=== PATIENT | male | born 1940 | race Caucasian/White ===

== ENCOUNTER → 2024-03-20 09:26 | Outpatient (REF) | payer MEDICARE, OTHER, SELFPAY | LOC: RCS 09:26 | PROVIDERS: ATTENDING PHYSICIAN Internal Medicine | DX: R00.1 Bradycardia, unspecified (principal); I49.1 Atrial premature depolarization; I49.3 Ventricular premature depolarization | CPT/HCPCS: 93225; 93226 ==

== ENCOUNTER → 2024-04-16 15:30 | Outpatient (REF) | payer MEDICARE, OTHER, SELFPAY | LOC: MRI 3T 15:30 | PROVIDERS: ATTENDING PHYSICIAN Internal Medicine | DX: K86.89 Other specified diseases of pancreas (principal) | CPT/HCPCS: 74183; A9575 ==

== ENCOUNTER → 2025-07-07 10:40 | Outpatient (REF) | payer MEDICARE, OTHER, SELFPAY | LOC: RAD 10:40 | PROVIDERS: ATTENDING PHYSICIAN Internal Medicine | DX: R07.89 Other chest pain (principal) | CPT/HCPCS: 72072 ==